=== PATIENT | male | born 1995 | race African-American/Black ===

== ENCOUNTER 2018-09-10 18:20 | Emergency (ER) | payer OTHER ==
[~2018-09-10] VITALS: Ht 185.4 cm; Wt 159.0 kg
[~2018-09-10 18:20] MED LIST: PENICILLIN
[2018-09-10 18:52] VITALS: BP 159/99
--- NOTE | 2018-09-10 18:55 | NUR ---
PT AMBULATES BACK TO THE LOBBY
--- NOTE | 2018-09-10 20:15 | NUR ---
PATIENT AMBULATED TO ER CHAIR E.
[2018-09-10 20:20] VITALS: BP 150/85
--- NOTE | 2018-09-10 20:20 | NUR ---
PATIENT IS A 22 Y/O MALE WHO PRESENTS TO THE ED C/O SORE THROAT. PT STATES THAT IT HAS BEEN GOING ON X2 WEEKS. PT REPORTS 8/10 ACHING THROAT PAIN THAT DOES NOT RADIATE. PT DENIES CP, SOB, REPORTS COUGH, DENIES N/V/D. PT AWAKE AND ALERT, RR EVEN/UNLABORED. PT REPOSITIONED FOR COMFORT, BED IN LOWEST POSITION. ER PROVIDER NOTIFIED. WILL CONTINUE TO MONITOR.
--- NOTE | 2018-09-10 20:25 | NUR ---
PATIENT EXPRESSED WISH TO BE IN BED. PT EDUCATED THAT PT ARE PLACED IN BED VIA ACUITY/SEVERITY.
--- NOTE | 2018-09-10 20:35 | NUR ---
PATIENT LEFT WITHOUT BEING SEEN BY DR. RAMOS. NO FURTHER CARE PROVIDED FOR PATIENT.
== END 2018-09-10 20:35 | disposition left against medical advice (07) ==
LOC: MED 18:20
DX: J02.9 Acute pharyngitis, unspecified (principal); R05 Cough; R13.10 Dysphagia, unspecified